=== PATIENT | male | born 1940 | race Caucasian/White ===

== ENCOUNTER 2018-06-01 12:03 | Day surgery (SDC) | payer MEDICARE, OTHER ==
[2018-05-31 14:26] VITALS: BMI 20.9
[2018-06-01] MEDS ORDERED: ACETAMINOPHEN 325 MG TABLET (FP) PO PRN (15:18)
--- NOTE | 2018-06-01 15:22 | OP ---
Operative Note - Note: Operative Date: 06/01/18 Pre-Operative Diagnosis: bph with luts Operation: turp/tuvp Findings: trilobar prostate hypertrophy Post-Operative Diagnosis: Same as Pre-op Surgeon: Comfort Mart Anesthesia: General Specimens Removed: prostate chips Estimated Blood Loss (mls): 40 Drains & Tubes with Location: 24f 30 cc ashby Drains, Volume Out (mls): 0 Blood Volume Replaced (mls): 0 Operative Report Dictated: Yes
[2018-06-01] MEDS ORDERED: oxyCODONE HCL 5 MG TABLET PO ONE (15:30)
[2018-06-01] MEDS ORDERED: ACETAMINOPHEN 325 MG TABLET (FP) PO ONE (15:30)
[2018-06-01] MEDS ORDERED: MIDAZOLAM HCL 2 MG/2 ML SINGLE DOSE VIAL ONE (15:33)
[2018-06-01] MEDS ORDERED: oxyCODONE HCL 5 MG TABLET PO PRN ×2 (15:52)
[2018-06-01] MEDS ORDERED: ONDANSETRON 4 MG/2 ML VIAL IVPUSH PRN (15:52)
[2018-06-01] MEDS ORDERED: LACTATED RINGERS SOLUTION 1,000 ML IV SCH (16:00)
[2018-06-01] MEDS ORDERED: PROPOFOL 20 ML ONE (16:05)
--- NOTE | 2018-06-01 16:18 | HP ---
DATE OF ADMISSION: DATE OF DICTATION: 06/01/2018 HISTORY OF PRESENT ILLNESS: The patient is a 77-year-old male with a history of benign prostatic hypertrophy, was on Flomax without results. Patient has history of frequency and recurrent urinary tract infections treated with Bactrim several times. Patient also has history of hypogonadism and was on testosterone replacement therapy. Patient has had persistent microscopic hematuria, had a cystoscopy in the office on April 11, 2018. At that time, a large obstructing prostate was found with a trabeculated bladder. The patient is scheduled for a transurethral vaporization, transurethral resection of the prostate. He does have history of high blood pressure. Denies any diabetes or cardiac diseases. The patient is on Flomax, an antihypertensive and an aspirin. Has had a colonoscopy in the past. PHYSICAL EXAMINATION: Blood pressure is 120/80, chest is clear, heart is regular. Abdomen is soft. No CVA tenderness was elicited. Genitalia are atraumatic. Testes are normal in size and consistency, and no hernias or hydroceles were elicited. Prostate is 3+ smooth, benign, and nontender. LABORATORY: The patient's PSA is 2.0. BUN, creatinine is 17/0.9. Serum testosterone was 214. cytology due to persistent hematuria were negative. PLAN: The patient is admitted for a transurethral vaporization, transurethral resection of prostate. Procedure and all possible side effects explained fully to patient, and he agrees. SHARI HAMMOND M.D. [id number]
[2018-06-01] MEDS ORDERED: ACETAMINOPHEN INJECTION 100 ML IVPB ONE (18:04)
[2018-06-01] MEDS ORDERED: KETOROLAC TROMETHAMINE 30 MG/1 ML VIAL IVPUSH ONE (18:06)
[2018-06-01] MEDS ORDERED: ACETAMINOPHEN 1000 MG/100 ML VIAL (NON FORMULARY) IVPB ONE (18:07)
[2018-06-01 18:35] VITALS: TEMP 97.8
[2018-06-01 20:07] VITALS: BP 150/75; PULSE 76
--- NOTE | 2018-06-02 08:34 | OP ---
DATE OF OPERATION: 06/01/2018 SURGEON: Comfort Mart MD PREOPERATIVE DIAGNOSIS: Benign prostatic hypertrophy. POSTOPERATIVE DIAGNOSIS: Benign prostatic hypertrophy. OPERATIVE PROCEDURE: Transurethral resection and transurethral vaporization of the prostate. ANESTHESIA: Spinal. DESCRIPTION OF PROCEDURE: Under above stated anesthesia, patient was prepped and draped in the usual sterile manner. He was placed in the dorsal lithotomy position. External genitalia were within normal limits. No hernias or hydroceles were elicited. A continuous-flow 30-degree scope introduced under direct vision revealed a normal anterior urethra. Prostatic urethra revealed bilobar hypertrophy of the prostate. There was lateral lobe kissing. The bladder was entered, and 400 mL of residual urine was drained. Inspection of the bladder revealed a grade 3 trabeculated bladder with multiple saccules. Ureteral orifices were within normal limits with efflux of clear urine. A stored bipolar resectoscope was inserted, and resection of the prostate was commenced at the 6 o'clock position of the right lateral lobe. This was carried on up to the 12 o'clock position. The same thing was done to the left lateral lobe. Lastly, a Vaportrode was introduced, and excess tissue was vaporized. Again, hemostasis was secured with electrocautery, and the Vaportrode prostate chips were evacuated with an Etreasurebox evacuator. No active bleeding was noted. Therefore, the bladder was emptied, scope was removed, and a 24-Omani 30-mL Manzanares was inserted. This was connected to a leg bag. The patient tolerated the procedure well. He returned to the recovery room in good condition. Shelly [id number]
--- NOTE | 2018-06-08 15:33 | PATH ---
Surgical Pathology Report Patient Name: JULIAN GARY [facility]. Rec. #: [id number] /Age/Gender: 1940 (Age: 77) / M Account: [id number] Location: [facility] SUR[facility] Taken: 06/01/2018 Received: 06/04/2018 Reported: 06/08/2018 Physicians: Comfort Mart M.D. Specimen(s) Received PROSTATE CHIPS Clinical History BPH Final Diagnosis PROSTATE TISSUE, TRANSURETHRAL RESECTION OF THE PROSTATE: BENIGN PROSTATE HYPERPLASIA WITH ACUTE AND CHRONIC PROSTATITIS. Comment: P63, AMACR (P504S), and CKHMW were utilized to evaluate the lesion. Immunohistochemistry stains AMACR (P504S), and CKHMW performed at [place], [place] ([id number]) interpreted at [facility]. Immunohistochemistry stain P63 performed and interpreted at [facility]. Positive and negative controls (internal if applicable) show appropriate results. Electronically Signed Zeny Rosas M.D. Gross Description Received in formalin labeled "prostate tissue," is a 3 g, 4.5 x 4.0 x 0.3 cm aggregate of multiple portions of firm to rubbery tissue, consistent with prostate chips. The specimen is entirely submitted in 4 cassettes. No DL06/04/201806/04/2018
== END 2018-06-01 20:00 | disposition home or self-care (01) ==
LOC: JASU-SURG 12:03
PROVIDERS: ATTEND Urology
PROC: 0VT08ZZ Resection of Prostate, Via Natural or Artificial Opening Endoscopic (ICD-10-PCS; principal; 2018-06-01 14:00)
DX: N40.0 Benign prostatic hyperplasia without lower urinary tract symptoms (principal)
CPT/HCPCS: 88305-TC; 88342-TC; 94760; J0131

== ENCOUNTER 2019-09-10 08:52 | Day surgery (SDC) | payer MEDICARE, OTHER ==
[2019-09-09 16:04] VITALS: BMI 20.6
[2019-09-10] MEDS ORDERED: PROPOFOL 20 ML ONE (16:45)
[2019-09-10] MEDS ORDERED: ceFAZolin SODIUM 1 GM VIAL IVPB ONE (17:35)
[2019-09-10] MEDS ORDERED: EPHEDRINE SULFATE/0.9% NACL/PF 50 MG/10 ML SYRINGE NR ONE (17:37)
[2019-09-10] MEDS ORDERED: oxyCODONE HCL 5 MG TABLET PO PRN ×2 (18:06)
[2019-09-10] MEDS ORDERED: ONDANSETRON 4 MG/2 ML VIAL IVPUSH PRN (18:06)
[2019-09-10] MEDS ORDERED: LACTATED RINGERS SOLUTION 1,000 ML IV SCH (18:15)
[2019-09-10] MEDS ORDERED: ceFAZolin SODIUM 1 GM VIAL ONE (18:19)
--- NOTE | 2019-09-10 18:42 | OP ---
Operative Note - Note: Operative Date: 09/10/19 Pre-Operative Diagnosis: hematuria and aileen. hydro,prostatism Operation: cysto, aileen. retro,aileen. ureteroscopy,lt. stone baskatting and lt. jj stent placement, and ashby placement Findings: bph with obstruction, aileen. hydro, lt. ureteral stone Post-Operative Diagnosis: Same as Pre-op Surgeon: Comfort Mart Anesthesia: General Estimated Blood Loss (mls): 0 Drains & Tubes with Location: 24cm lt. jj stent and 18f 5cc ashby Drains, Volume Out (mls): 0 Blood Volume Replaced (mls): 0 Fluid Volume Replaced (mls): 0 Operative Report Dictated: Yes
--- NOTE | 2019-09-10 19:28 | CONS ---
DATE OF CONSULTATION: DATE OF DICTATION: 09/10/2019 HISTORY OF PRESENT ILLNESS: Patient is a 79-year-old male presented with persistent microscopic hematuria, bilateral CVA pain and prostatism including frequency, urgency, and nocturia x2. The patient also has history of high blood pressure. He is status post an abdominal perineal resection for rectal cancer. He has been cancer-free for the past 10 years. He is on multiple medications including Flonase, aspirin, metoprolol, losartan. PHYSICAL EXAMINATION: General: A well developed elderly male in no apparent distress. Abdomen: Soft. There was no CVA tenderness. No organomegaly was noted. Genitalia: Were those of a normal adult male. A colostomy bag was present in the left lower quadrant. It was pink and patent. The rectum was absent. Testes were normal in size and consistency, and no hernias or hydroceles were palpated. IMPRESSION: Persistent hematuria, left hydronephrosis, prostatism. PLAN: The plan is to do a cystoscopy, bilateral retrograde pyelogram, bilateral ureteroscopy and collection of urine for cytology. This was explained to patient and patient's daughter, and they both agree. SHARI HAMMOND M.D. [id number]
--- NOTE | 2019-09-10 19:45 | OP ---
DATE OF OPERATION: 09/10/2019 PREOPERATIVE DIAGNOSIS: Mild bilateral hydronephrosis and persistent microscopic hematuria. OPERATIVE PROCEDURE: 1. Cystourethroscopy. 2. Bilateral retrograde pyelograms. 3. Left ureteroscopy with stone basketing and placement of a left JJ stent. ANESTHESIA: General. DESCRIPTION OF PROCEDURE: Under the above stated anesthesia, the patient was prepped and draped in the usual sterile manner. He was placed in the dorsal lithotomy position. Cystoscopy revealed recurrent hypertrophy of the right lateral lobe of the prostate. This was protruding inside the bladder. The bladder revealed grade 2 to 3 trabeculation. No lesions were noted. No calculi were seen. Urine was collected for cytology as well as for C and S. A right retrograde pyelogram was performed. This revealed fullness of the right renal pelvis. Ureteroscopy using a semi-rigid ureteroscope revealed a normal right renal unit. The renal pelvis was normal. No lesions or calculi were seen. Fluid and urine were collected from the right renal pelvis and sent separately for cytology. A left retrograde pyelogram was then performed. This revealed a moderate left hydroureteronephrosis with a filling defect in the left upper ureter. A Glidewire was passed up the left renal unit. The cystoscope was removed. A semi-rigid ureteroscope was inserted. Ureteroscopy revealed a normal lower ureter. The upper ureter revealed a 4-mm stone. Using a stone basket, the stone was removed atraumatically. Continuation of the ureteroscopy revealed an injected left renal pelvis. No overt lesions or calculi were seen. Again, cytology from the left renal pelvis was taken and sent for FISH as well as cytology. The ureteroscope was removed from the left side and a 24-cm, 6-Chadian JJ stent was left in place. X-rays confirmed good position of the stent. The bladder was emptied. The scope was removed. A Manzanares was placed. The patient tolerated the procedure well. He returned to the recovery room in good condition. Shelly [id number]
[2019-09-10 20:35] VITALS: BP 153/66; PULSE 65; TEMP 97.4
--- NOTE | 2019-09-12 15:43 | PATH ---
Cytology Non-Gynecological Report Patient Name: JULIAN GARY Med. Rec. #: [id number] /Age/Gender: 1940 (Age: 79) / M Account: [id number] Location: [facility] SURGICAL Taken: 09/10/2019 Received: 09/11/2019 Reported: 09/12/2019 Physicians: Comfort Mart M.D. Specimen(s) Received RENAL PELVIS WASHINGS, RIGHT Clinical History Hydronephrosis, persistent microscopic hematuria Final Diagnosis RENAL PELVIS WASHINGS, RIGHT, FOR CYTOLOGY: SATISFACTORY FOR EVALUATION. NEGATIVE FOR HIGH GRADE UROTHELIAL CARCINOMA. UROTHELIAL CELLS PRESENT. UROTHELIAL FRAGMENTS PRESENT. Comment: Urothelial fragments are suggestive of prior instrumentation, lithiasis, or a low grade papillary neoplasm. Suggest clinical correlation. See concurrent cytology (C20-10 and C20-11). Electronically Signed Pam Steven M.D. Gross Description Approximately 0.4 cc of bloody fluid received fresh. One cytofunnel prepared and Pap stained.
--- NOTE | 2019-09-12 15:44 | PATH ---
Cytology Non-Gynecological Report Patient Name: JULIAN GARY Med. Rec. #: [id number] /Age/Gender: 1940 (Age: 79) / M Account: [id number] Location: [facility] SURGICAL Taken: 09/10/2019 Received: 09/11/2019 Reported: 09/12/2019 Physicians: Comfort Mart M.D. Specimen(s) Received RENAL PELVIC FLUID, LEFT Clinical History Hydronephrosis, persistent microscopic hematuria Final Diagnosis RENAL PELVIC FLUID, LEFT, FOR CYTOLOGY: SATISFACTORY FOR EVALUATION. NEGATIVE FOR HIGH GRADE UROTHELIAL CARCINOMA. UROTHELIAL CELLS PRESENT. RED BLOOD CELLS PRESENT. UROTHELIAL FRAGMENTS PRESENT. Comment: Urothelial fragments are suggestive of prior instrumentation, lithiasis, or a low grade papillary neoplasm. Suggest clinical correlation. See concurrent cytology (C20-9 and C20-11). Electronically Signed Pam Steven M.D. Gross Description Approximately 0.4 cc of bloody fluid received fresh. One cytofunnel prepared and Pap stained.
--- NOTE | 2019-09-12 15:45 | PATH ---
Cytology Non-Gynecological Report Patient Name: JULIAN GARY Med. Rec. #: [id number] /Age/Gender: 1940 (Age: 79) / M Account: [id number] Location: [facility] Taken: 09/10/2019 Received: 09/11/2019 Reported: 09/12/2019 Physicians: Comfort Mart M.D. Specimen(s) Received URINE Clinical History Hydronephrosis, persistent microscopic hematuria Final Diagnosis URINE FOR CYTOLOGY: SATISFACTORY FOR EVALUATION. NEGATIVE FOR HIGH GRADE UROTHELIAL CARCINOMA. UROTHELIAL CELLS PRESENT. RED BLOOD CELLS PRESENT. UROTHELIAL FRAGMENTS PRESENT. Comment: Urothelial fragments are suggestive of prior instrumentation, lithiasis, or a low grade papillary neoplasm. Suggest clinical correlation. See concurrent cytology (C20-9 and C20-10). Electronically Signed Pam Steven M.D. Gross Description Approximately 50 cc of yellow fluid received fresh. One cytofunnel prepared and Pap stained.
== END 2019-09-10 20:30 | disposition home or self-care (01) ==
LOC: JASU-SURG 08:52
PROVIDERS: ATTEND Urology
PROC: 0T778DZ Dilation of Left Ureter with Intraluminal Device, Via Natural or Artificial Opening Endoscopic (ICD-10-PCS; 2019-09-10)
PROC: BT14YZZ Fluoroscopy of Kidneys, Ureters and Bladder using Other Contrast (ICD-10-PCS; 2019-09-10)
PROC: 0TC78ZZ Extirpation of Matter from Left Ureter, Via Natural or Artificial Opening Endoscopic (ICD-10-PCS; principal; 2019-09-10 11:30)
DX: N20.1 Calculus of ureter (principal); N13.30 Unspecified hydronephrosis; R31.29 Other microscopic hematuria; N40.0 Benign prostatic hyperplasia without lower urinary tract symptoms; N32.89 Other specified disorders of bladder
CPT/HCPCS: 76000-TC-FY; 87086; 94760

== ENCOUNTER 2020-03-06 10:28 | Day surgery (SDC) | payer MEDICARE, OTHER ==
[2020-03-05 10:02] VITALS: BMI 21.1
[2020-03-06] MEDS ORDERED: ONDANSETRON 4 MG/2 ML VIAL IVPUSH PRN (12:42)
[2020-03-06] MEDS ORDERED: oxyCODONE HCL 5 MG TABLET PO PRN ×2 (12:42)
[2020-03-06] MEDS ORDERED: LACTATED RINGERS SOLUTION 1,000 ML IV SCH (12:45)
[2020-03-06] MEDS ORDERED: MIDAZOLAM HCL 2 MG/2 ML SINGLE DOSE VIAL ONE ×2 (12:51→14:07)
[2020-03-06] MEDS ORDERED: PROPOFOL 20 ML ONE ×2 (12:51→14:39)
--- NOTE | 2020-03-06 14:26 | CONS ---
DATE OF CONSULTATION: DATE OF DICTATION: 03/06/2020 HISTORY OF PRESENT ILLNESS: Patient is a 79-year-old male with history of nocturia, frequency, hesitancy and hematuria. He did undergo a cystoscopy last month in the office which revealed bilobar hypertrophy of the prostate with bladder neck contraction. The patient did have a laser vaporization of his prostate 2 years earlier. Also had a left colectomy in the past. He does have history of high blood pressure. He denies any other medical history. PHYSICAL EXAMINATION: Lungs: Normal. Abdomen: Soft. Bladder had 175 mL of residual urine. Genitalia: Atraumatic. Prostate is 3+, smooth, benign and nontender. DATA: A bladder biopsy performed earlier this month was benign. A FISH test also came back negative. The patient's PSA is 1.9. BUN is 17 and creatinine is 1.1. IMPRESSION AT PRESENT: Recurrent benign prostatic hypertrophy with bladder neck contraction and hematuria. PLAN: Patient will undergo a cystoscopy and prostate as well as bladder neck vaporization. This was explained to the patient and he agrees. Shelly [id number]
[2020-03-06] MEDS ORDERED: ceFAZolin SODIUM 1 GM VIAL IVPB ONE (14:31)
--- NOTE | 2020-03-06 15:04 | OP ---
Operative Note - Note: Operative Date: 03/06/20 Pre-Operative Diagnosis: bph with luts and bladder neck contraction Operation: turp/vp of marketing and tuvbn Findings: bnc rec bph and gr3 bladder trabeculation Post-Operative Diagnosis: Same as Pre-op Surgeon: Comfort Mart Anesthesia: General Specimens Removed: prostate chips Estimated Blood Loss (mls): 50 Drains & Tubes with Location: 24f 20cc ashby Drains, Volume Out (mls): 0 Blood Volume Replaced (mls): 0 Fluid Volume Replaced (mls): 0 Operative Report Dictated: Yes
--- NOTE | 2020-03-06 15:26 | OP ---
Operative Note - Note: Operative Date: 03/06/20 Pre-Operative Diagnosis: bph with luts, s/p cysto-bladder neck contraction Operation: tuvp/bn Findings: rec. bph and bladder neck contraction and bladder trabeculation Post-Operative Diagnosis: Same as Pre-op Surgeon: Comfort Mart Anesthesia: General Specimens Removed: prostate tissue and bladder neck tissue Estimated Blood Loss (mls): 50 Drains & Tubes with Location: 22f-10cc ashby Drains, Volume Out (mls): 0 Blood Volume Replaced (mls): 0 Fluid Volume Replaced (mls): 0 Operative Report Dictated: Yes
[2020-03-06 17:27] VITALS: TEMP 96.9
[2020-03-06] MEDS ORDERED: oxyCODONE HCL 5 MG TABLET ONE (17:41)
[2020-03-06 19:59] VITALS: BP 139/77; PULSE 61
--- NOTE | 2020-03-13 18:23 | PATH ---
Surgical Pathology Report Patient Name: JULIAN GARY [facility]. Rec. #: [id number] /Age/Gender: 1940 (Age: 79) / M Account: [id number] Location: [facility] Taken: 03/06/2020 Received: 03/09/2020 Reported: 03/13/2020 Physicians: Comfort Mart M.D. Specimen(s) Received PROSTATE CHIPS Clinical History Bladder neck obstruction Final Diagnosis PROSTATE CHIPS, TRANSURETHRAL RESECTION OF THE PROSTATE: ADENOCARCINOMA OF PROSTATE, GRADE GROUP 2 (MENDEZ SCORE 3+4=7). ESTIMATED PERCENTAGE OF PROSTATIC TISSUE INVOLVED BY TUMOR: 4% INTRADUCTAL CARCINOMA AND HIGH-GRADE PROSTATIC INTRAEPITHELIAL NEOPLASIA IDENTIFIED. PERINEURAL INVASION IS IDENTIFIED. NO LYMPHOVASCULAR INVASION IDENTIFIED. ALSO SEE SURGICAL PATHOLOGY CANCER CASE SUMMARY BELOW. Comment: Immunohistochemical stained slide (Block 1) demonstrate the glands of adenocarcinoma to be negative for basal cell layer markers cytokeratin HMW and p40, while positive for AMACR, confirming the above diagnosis. CK20 is negative at this focus of adenocarcinoma, CK7 is noncontributory. Separate arears of glands showing cribriform, micropapillary, or flat proliferative patterns with markedly enlarged and pleomorphic nuclei and nonfocal comedonecrosis, showing positive AMACR staining in the proliferative cells with preserved basal cell layer (cytokeratin HMW and p40, block 1 and 3), consistent with intraductal carcinoma. Immunohistochemistry stains performed at [place], [place] ([id number]) and interpreted at [facility]. Positive and negative controls (internal if applicable) show appropriate results. Intradepartmental case reviewed with concordance on diagnosis. This case is discussed with Dr. Nelson from Dr. Mart's office, 03/13/2020. Comments Surgical pathology cancer case summary Procedure _x_ Transurethral resection of the prostate (TURP) Histologic Type _x_ Acinar adenocarcinoma Histologic Grade Grade Group and Emndez Score _x_ Grade group 2 (Mendez Score 3+4=7) Percentage of Pattern 4 in [place] Score 7(3+4, 4+3) Cancer: 30% Intraductal Carcinoma (IDC) _x_ Present Tumor Quantitation Estimated percentage of prostatic tissue involved by tumor: 4% For TURP Specimens Number of positive chips: 2 Total number of chips: 36 Lymphovascular Invasion _x_ Not identified Perineural Invasion _x_ Present Additional Pathologic Findings _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 Gross Description Received in formalin labeled "prostate chips," is a 2 g, 3.5 x 3.3 x 0.4 cm aggregate of thomas, irregular, firm to rubbery portions of tissue, consistent with prostate chips. The specimen is entirely submitted in 3 cassettes. 03/09/2020 [facility]
--- NOTE | 2020-03-18 15:07 | OP ---
DATE OF OPERATION: 03/06/2020 PREOPERATIVE DIAGNOSIS: Prostatic obstruction and bladder neck contraction. OPERATIVE PROCEDURE: Transurethral resection and vaporization of prostate and bladder neck. POSTOPERATIVE DIAGNOSIS: Prostatic obstruction and bladder neck contraction. ANESTHESIA: General. Under above-stated anesthesia, patient was prepped and draped in the usual sterile manner. He was placed in the dorsal lithotomy position. Cystoscopy revealed recurrent prostate tissue with lateral lobe kissing. The bladder neck was also tight and unable to accommodate the scope. A bipolar loop was introduced. The bladder neck was resected. The prostate was also resected. Chips were evacuated with an [employer] evacuator. Excess tissue was then vaporized. No active bleeding was noted. The bladder was emptied. The scope was removed. A 24-Yakut 20 mL Manzanares was inserted and connected to a leg bag. The patient tolerated the procedure well. He returned to the recovery room in good condition. Shelly [id number]
== END 2020-03-06 19:15 | disposition home or self-care (01) ==
LOC: JASU-SURG 10:28
PROVIDERS: ATTEND Urology
PROC: 0TTB4ZZ Resection of Bladder, Percutaneous Endoscopic Approach (ICD-10-PCS; principal; 2020-03-06 12:30)
PROC: 0VT08ZZ Resection of Prostate, Via Natural or Artificial Opening Endoscopic (ICD-10-PCS; 2020-03-06 12:30)
DX: N32.0 Bladder-neck obstruction (principal); N13.8 Other obstructive and reflux uropathy
CPT/HCPCS: 87086; 88305-TC; 94760

== ENCOUNTER 2020-03-07 07:31 | Emergency (ER) | payer MEDICARE, OTHER ==
[2020-03-07 07:44] VITALS: BMI 21.1
--- NOTE | 2020-03-07 07:45 | PDOC ---
History of Present Illness - General Chief Complaint: Urinary Catheter Problem Stated Complaint: INSTALL CATHERER Time Seen by Provider: 03/07/20 07:43 History Source: Patient - History of Present Illness Initial Comments: 03/07/20 08:03 79M w/hx HTN, BPH, TURP yesterday p/w hematuria around, into ashby bag. He reports symptoms started shortly after procedure, noting gross blood with urination. Denies any pain, distention, weakness, confusion, fatigue, palpitations, chest pain, or sob. No fevers, chills. Uro: Dr. 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) Cardiac Disorders: No CVA: No COPD: No CHF: No Dementia: No Diabetes: No GI Disorders: No Disorders: No HTN: Yes Hypercholesterolemia: No Liver Disease: No Seizures: No Thyroid Disease: No - Surgical History Abdominal Surgery: Yes (COLON RESECTION 15 YEARS AGO) Appendectomy: No Cardiac Surgery: No Cholecystectomy: No Lung Surgery: No Neurologic Surgery: No Orthopedic Surgery: No - Psycho-Social/Smoking History Smoking History: Never smoked - Substance Abuse Hx (Audit-C & DAST Scrn) How often the patient has a drink containing alcohol: Never Score: In Men: 4 or > Positive; In Women: 3 or > Positive: 0 Screen Result (Pos requires Nsg. Audit-10AR): Negative In the last yr the pt used illegal drug/Rx for NonMed reason: No Score: Yes response is considered Positive: 0 Screen Result (Positive result requires Nsg. DAST-10): Negative *Physical Exam - Vital Signs Last Vital Signs Temp Pulse Resp BP Pulse Ox 99.1 F 95 H 17 131/76 99 03/07/20 07:34 03/07/20 07:34 03/07/20 07:34 03/07/20 07:34 03/07/20 07:34 Discharge - Follow up/Referral Referrals: Abilio Ruiz MD [Primary Care Provider] - - Patient Discharge Instructions - Post Discharge Activity
--- NOTE | 2020-03-07 08:14 | PDOC ---
Attending Attestation - Resident Resident Name: Yevgeniy Arias - ED Attending Attestation I have performed the following: I have examined & evaluated the patient, The case was reviewed & discussed with the resident, I agree w/resident's findings & plan, Exceptions are as noted - HPI HPI: 03/07/20 08:13 79 M with h/o HTN, BPH, s/p TURP yesterday, presenting with blood in ashby leg bag. Pt states symptoms began shortly after the procedure. Denies any clots, just dark red urine. No F/C. No pain or abdominal distention. Uro: Dr. Comfort Mart - Physicial Exam PE: 03/07/20 08:14 See resident exam - Medical Decision Making 03/07/20 08:14 79 M with hematuria after TURP yesterday. - Labs, UA, UCx - Bladder scan to r/o obstruction - Discuss w/ Dr. Mart 03/07/20 11:35 Labs notable for WBC 25. UA with + blood bladder scan with no retention Case discussed with Dr. Mart, who will see pt this week. Pt has keflex sent to pharmacy already. Pt is well appearing, with normal vitals. Clinically stable for DC at this time. I discussed the physical exam findings, ancillary test results and final diagnoses with the patient. I answered all of the patient's questions. The patient was satisfied with the care received and felt comfortable with the discharge plan and treatment plan. The patient agrees to follow up with the primary care physician within 24-72 hours. Please note this patient was evaluated during the COVID-19 crisis with the presidential [place] Act Declaration and the [place] govern[place] executive order number 202. He/she was evaluated and clinical decisions were made relative to healthcare system resources as well as clinical picture during a pandemic crisis situation. Discharge - Discharge Information Problems reviewed: Yes Clinical Impression/Diagnosis: Hematuria, Ashby catheter in place, S/P TURP Disposition: HOME - Follow up/Referral Referrals: Abilio Ruiz MD [Primary Care Provider] - - Patient Discharge Instructions Patient Printed Discharge Instructions: DI for Transurethral Resection of the Prostate Additional Instructions: Please follow up with Dr. Mart as scheduled. Take the antibiotics that were sent to your pharmacy. If you experience any pain, worsening bleeding, a clogged catheter, fevers, or any other concerning symptoms, return to the ER immediately. - Post Discharge Activity
[2020-03-07 08:52] LABS: BASO % 0.1 % (0-2.0); HEMATOCRIT 35.8 % (35.4-49); HEMOGLOBIN 11.9 GM/dL (11.7-16.9); LYMPH % 1.7 % (8-40); MCH 30.8 pg (25.7-33.7); MCHC 33.3 g/dl (32.0-35.9); MEAN CELL VOLUME 92.4 fl (80-96); MEAN PLT VOLUME 9.5 fl (7.5-11.1); MONO % 5.4 % (3.8-10.2); NEUT % 92.8 % (42.8-82.8); PLATELET COUNT 253 K/MM3 (134-434); RBC 3.88 M/mm3 (4.00-5.60); RDW 13.8 % (11.9-15.9); WHITE BLOOD COUNT 25.3 K/mm3 (4.0-10.0)
[2020-03-07 09:28] LABS: ALBUMIN 3.7 g/dl (3.4-5.0); ALK PHOS 112 U/L (45-117); ANION GAP 10 MMOL/L (8-16); BILIRUBIN,TOTAL 0.6 mg/dL (0.2-1); BLOOD UREA NITROGEN 26.4 mg/dL (7-18); CALCIUM 8.7 mg/dL (8.5-10.1); CHLORIDE 106 mmol/L (98-107); CO2 25 mmol/L (21-32); CREATININE 1.7 mg/dL (0.55-1.3); GLUCOSE,RANDOM 119 mg/dL (74-106); POTASSIUM 4.2 mmol/L (3.5-5.1); SGOT/AST 19 U/L (15-37); SGPT/ALT 16 U/L (13-61); SODIUM 140 mmol/L (136-145); TOT PROT 6.4 g/dl (6.4-8.2)
[2020-03-07 10:23] LABS: URINE APPEARANCE Cloudy; URINE BILIRUBIN Negative (NEGATIVE); URINE COLOR Red; URINE GLUCOSE (UA) Negative (NEGATIVE); URINE KETONE Negative (NEGATIVE); URINE LEUK ESTERASE Trace (NEGATIVE); URINE NITRITE Negative (NEGATIVE); URINE PROTEIN 3+ (NEGATIVE); URINE RBC >100 /uL (0-23.9); URINE UROBILINOGEN 0.2 mg/dL (0.2-1.0)
[2020-03-07 12:03] LABS: PLATELET ESTIMATE NORMAL
[2020-03-07 12:04] VITALS: BP 128/59; PULSE 87; TEMP 98.6
== END 2020-03-07 12:04 | disposition home or self-care (01) ==
LOC: JER 07:31
DX: R31.9 Hematuria, unspecified (principal)
CPT/HCPCS: 36415; 80053; 81003; 84484; 85025; 87086; 99283-25

== ENCOUNTER 2021-09-29 04:24 | Day surgery (SDC) | payer MEDICARE, OTHER ==
[2021-09-28 14:34] VITALS: BMI 20.9
[2021-09-29] MEDS ORDERED: PROPOFOL 20 ML ONE (16:49)
[2021-09-29] MEDS ORDERED: DEXAMETHASONE SOD PHOSPHATE 4 MG/1 ML VIAL ONE (16:52)
[2021-09-29] MEDS ORDERED: ceFAZolin SODIUM 1 GM VIAL ONE (16:52)
[2021-09-29] MEDS ORDERED: MIDAZOLAM HCL 2 MG/2 ML SINGLE DOSE VIAL ONE (17:00)
[2021-09-29] MEDS ORDERED: ceFAZolin SODIUM 1 GM VIAL IVPB ONE (17:02)
[2021-09-29] MEDS ORDERED: oxyCODONE HCL 5 MG TABLET PO PRN (18:18)
[2021-09-29] MEDS ORDERED: ACETAMINOPHEN 325 MG TABLET (FP) PO PRN (18:18)
[2021-09-29 19:07] VITALS: PULSE 74
[2021-09-29 19:31] VITALS: BP 130/69; TEMP 97.4
== END 2021-09-29 19:40 | disposition home or self-care (01) ==
LOC: JASU-SURG 04:24
PROVIDERS: ATTEND Urology
PROC: 0TC68ZZ Extirpation of Matter from Right Ureter, Via Natural or Artificial Opening Endoscopic (ICD-10-PCS; principal; 2021-09-29 13:00)
DX: N13.2 Hydronephrosis with renal and ureteral calculous obstruction (principal)
CPT/HCPCS: 76000-TC-FY; 94760

== ENCOUNTER 2023-09-25 12:32 | Emergency (ER) | payer MEDICARE, OTHER ==
[2023-09-25 12:38] VITALS: TEMP 98.3; BMI 17.7
[2023-09-25 16:03] LABS: BASO % 0.4 % (0-2.0); EOS % 0.1 % (0-4.5); HEMATOCRIT 36.2 % (35.4-49); HEMOGLOBIN 12.1 GM/dL (11.7-16.9); LYMPH % 8.2 % (8-40); MCH 30.7 pg (25.7-33.7); MCHC 33.4 g/dl (32.0-35.9); MEAN CELL VOLUME 92.1 fl (80-96); MEAN PLT VOLUME 8.1 fl (7.5-11.1); MONO % 4.2 % (3.8-10.2); NEUT % 87.1 % (42.8-82.8); PLATELET COUNT 281 10^3/uL (134-434); RBC 3.93 M/mm3 (4.00-5.60); RDW 13.3 % (11.9-15.9); WHITE BLOOD COUNT 10.4 K/mm3 (4.0-10.0)
[2023-09-25 16:41] LABS: BILIRUBIN,TOTAL 0.5 mg/dL (0.2-1); BLOOD UREA NITROGEN 22.9 mg/dL (7-18); CALCIUM 8.9 mg/dL (8.5-10.1); TOT PROT 6.7 g/dl (6.4-8.2)
[2023-09-25 18:24] VITALS: BP 168/81; PULSE 61; RESP 11
== END 2023-09-25 19:51 | disposition home or self-care (01) ==
LOC: JER 12:32
DX: R11.10 Vomiting, unspecified (principal); R42 Dizziness and giddiness; J18.9 Pneumonia, unspecified organism; I10 Essential (primary) hypertension; Z20.822 Contact with and (suspected) exposure to COVID-19
CPT/HCPCS: 0241U-QW; 36415; 70450-TC; 71045-TC-FY; 80053; 84484; 85025; 93005; 93010; 99285-25